=== PATIENT | female | born 1985 | race Caucasian/White ===

== ENCOUNTER 2018-04-04 05:25 | Inpatient (IN) | payer MEDICAID ==
[~2018-04-04] VITALS: Ht 157.5 cm; Wt 99.8 kg
[2018-04-04] MEDS ORDERED: LACTATED RINGERS 1,000 ML IV SCH (06:09)
[2018-04-04] MEDS ORDERED: DEXT 5%/LR + PITOCIN 20UNITS/L 1,000 ML IV SCH ×2 (06:09→09:10)
[2018-04-04] MEDS ORDERED: LIDOCAINE HCL 1% 20ML VIAL (Pyxis) INJ INFIL SCH (06:15)
[2018-04-04] MEDS ORDERED: BUTORPHANOL TARTRATE 2 MG/ML VIAL IV PRN (06:15)
[2018-04-04] MEDS ORDERED: NALOXONE HCL 0.4 MG/ML 1ML VIAL IM PRN (06:15)
[2018-04-04] MEDS ORDERED: METHYLERGONOVINE MALEATE 0.2 MG/ML IM PRN (06:15)
[2018-04-04] MEDS ORDERED: CALC-1042 PO (06:15)
[2018-04-04] MEDS ORDERED: PREN1TAB78 MT (06:15)
[2018-04-04] MEDS ORDERED: PENICILLIN G POTASSIUM 5 MMU in DEXT 5% WATER 100 ML IV SCH (06:30)
[2018-04-04 06:41] LABS: CLARITY URINE CLOUDY (CLEAR); COLOR URINE DARK YELLOW (YELLOW); KETONES URINE TRACE (NEGATIVE); LEUKOCYTE ESTERASE URINE 3+ (NEGATIVE); NITRITE URINE NEGATIVE (NEGATIVE); OCCULT BLOOD URINE NEGATIVE (NEGATIVE); PH URINE 5.5 (4.5-8.0); PROTEIN URINE TRACE (NEGATIVE); SPECIFIC GRAVITY URINE 1.024 (1.005-1.030)
[2018-04-04 06:49] LABS: INR 0.9; PARTIAL THROMBOPLASTIN TIME 27.5 sec (23.4-31.0); PROTHROMBIN TIME 9.5 sec (9.4-11.6)
[2018-04-04 06:52] LABS: BASOPHILS % 0.4 % (0.0-2.0); EOSINOPHILS % 0.2 % (0.0-5.0); HEMATOCRIT. 40.2 % (36.0-48.0); HEMOGLOBIN. 13.6 g/dL (12.0-16.0); LYMPHOCYTES % 12.4 % (20.0-50.0); MEAN CORPUSCULAR HEMOGLOBIN 28.2 pg (28.0-32.0); MEAN CORPUSCULAR VOLUME 83.6 fL (81.0-99.0); MEAN PLATELET VOLUME 10.2 fl (7.4-10.4); MONOCYTES % 6.3 % (2.0-8.0); NEUTROPHILS % 80.7 % (40.0-76.0); PLATELET 179 x1000/uL (130-400); RED BLOOD CELL COUNT 4.81 mill/uL (4.2-5.4); RED CELL DISTRIBUTION WIDTH 13.4 % (11.6-14.6)
[2018-04-04 06:59] LABS: *AMPHETAMINES SCREEN URINE NEGATIVE (NEGATIVE); *BARBITURATES SCREEN URINE NEGATIVE (NEGATIVE)
[2018-04-04 07:00] LABS: *BENZODIAZEPINES SCREEN URINE NEGATIVE (NEGATIVE); *COCAINE SCREEN URINE NEGATIVE (NEGATIVE); CANNABINOID URINE SCREEN NEGATIVE (NEGATIVE); METHADONE URINE SCREEN NEGATIVE (NEGATIVE); OPIATES URINE SCREEN NEGATIVE (NEGATIVE); PHENCYCLIDINE URINE SCREEN NEGATIVE (NEGATIVE)
[2018-04-04 07:24] LABS: HEPATITIS B SURFACE ANTIGEN NEGATIVE
[2018-04-04 07:36] LABS: RUBELLA IGG > 500.0 IU/mL (4.99-10)
[2018-04-04] MEDS ORDERED: DIPHENHYDRAMINE 25MG CAPSULE PO PRN (09:15)
[2018-04-04] MEDS ORDERED: ACETAMINOPHEN WITH CODEINE 300/30MG TABLET PO PRN (09:15)
[2018-04-04] MEDS ORDERED: GLYCERIN/WITCH HAZEL LEAF MEDICATED PAD TOP PRN (09:15)
[2018-04-04] MEDS ORDERED: LANOLIN OINT 0.25 GM TUBE TOP PRN (09:15)
[2018-04-04] MEDS ORDERED: BENZOCAINE/LANOLIN/ALOE VERA SPRAY TOP PRN (09:15)
[2018-04-04] MEDS ORDERED: HEMORRHOIDAL SUPP PR PRN (09:15)
[2018-04-04] MEDS ORDERED: PENICILLIN G POTASSIUM 2.5 MMU in DEXTROSE 5% WATER 50 ML IV SCH (10:30)
[2018-04-04 11:00] VITALS: BP 107/54
[2018-04-04 11:30] VITALS: BP 112/52
[2018-04-04] MEDS ORDERED: TETANUS, DIPHTHERIA, PERTUSSIS VAC/PF 0.5ML (>7YR OLD) IM ONE (13:00)
[2018-04-04 15:56] VITALS: BP 109/63
[2018-04-04] MEDS: IBUPROFEN 400MG TABLET PO PRN (18:01)
[2018-04-04 19:25] VITALS: BP 129/78
[2018-04-04] MEDS: DOCUSATE SODIUM 100MG CAPSULE PO SCH (21:20)
[2018-04-05 04:30] VITALS: BP 100/40
[2018-04-05] MEDS: ACETAMINOPHEN WITH CODEINE 300/30MG TABLET PO PRN ×2 (04:42→22:51)
[2018-04-05 07:57] LABS: BASOPHILS % 0.2 % (0.0-2.0); EOSINOPHILS % 0.9 % (0.0-5.0); HEMOGLOBIN. 10.9 g/dL (12.0-16.0); LYMPHOCYTES % 21.8 % (20.0-50.0); MEAN CORPUSCULAR HEMOGLOBIN 28.5 pg (28.0-32.0); MEAN CORPUSCULAR VOLUME 83.9 fL (81.0-99.0); MEAN PLATELET VOLUME 10.1 fl (7.4-10.4); MONOCYTES % 6.1 % (2.0-8.0); PLATELET 156 x1000/uL (130-400); RED BLOOD CELL COUNT 3.82 mill/uL (4.2-5.4); RED CELL DISTRIBUTION WIDTH 13.9 % (11.6-14.6)
[2018-04-05] MEDS: PRENATAL VIT/FE FUMARATE/FA TABLET PO SCH (08:05)
[2018-04-05] MEDS: IBUPROFEN 400MG TABLET PO PRN (08:06)
[2018-04-05 08:20] VITALS: BP 104/59
[2018-04-05] MEDS: FERROUS SULFATE 325MG TABLET PO SCH ×4 (09:00→20:54)
[2018-04-05 15:55] VITALS: BP 119/70
[2018-04-05] MEDS: DOCUSATE SODIUM 100MG CAPSULE PO SCH (20:53)
[2018-04-05 22:00] VITALS: BP 121/70
[2018-04-06 05:00] VITALS: BP 115/68
[2018-04-06] MEDS: PRENATAL VIT/FE FUMARATE/FA TABLET PO SCH (08:21)
[2018-04-06] MEDS: FERROUS SULFATE 325MG TABLET PO SCH (08:22)
[2018-04-06 09:00] VITALS: BP 109/59
== END 2018-04-06 12:30 | disposition home or self-care (01) | DRG 560 ==
LOC: L&D 05:25 → OBSVTOIN 08:42 → 7EST PP/OB 10:59
PROVIDERS: ADMIT Specialist; ATTEND Specialist
PROC: 0KQM0ZZ Repair Perineum Muscle, Open Approach (ICD-10-PCS; 2018-04-04)
PROC: 10E0XZZ Delivery of Products of Conception, External Approach (ICD-10-PCS; principal; 2018-04-04 08:42)
DX: O77.0 Labor and delivery complicated by meconium in amniotic fluid (principal); O70.1 Second degree perineal laceration during delivery; Z3A.40 40 weeks gestation of pregnancy; Z79.899 Other long term (current) drug therapy; Z37.0 Single live birth
CPT/HCPCS: 36415; 80305; 81003; 85025; 85610; 85730; 86592; 86703; 86762; 86850; 86900; 87086; 87340; G0378; J0595; J2540; J2590; J3490; J7060; J7120